=== PATIENT | female | born 1995 | race Caucasian/White ===

== ENCOUNTER 2021-04-25 02:59 | Emergency (ER) | payer OTHER ==
[2021-04-25] MEDS ORDERED: Haloperidol Lactate 5 MG/ML VIAL ONE ×2 (03:25→06:56)
[2021-04-25 05:51] LABS: #Eosinphils 0.1 10x3/uL (0.0-0.5); #Monocytes 0.5 10x3/uL (0.0-1.1); #Neutrophils 8.9 10x3/uL (1.5-8.4); %Basophils 0.4 % (0.0-2.0); %Eosinophils 0.6 % (0.0-6.0); %Lymphocytes 12.5 % (18.0-47.0); %Monocytes 4.3 % (0.0-10.0); %Neutrophils 81.7 % (40.0-75.0); Hemoglobin 12.5 g/dL (12.0-15.5); Mean Corpuscular HGB CONC 32.8 g/dL (32.0-36.0); Mean Corpuscular Hemoglobin 30.9 pg (27.0-33.0); Mean Corpuscular Volume 94.3 fl (81.6-98.3); Mean Platelet Volume 11.2 fl (7.4-10.4); Platelet Count 185 10x3/uL (150-450); RBC Distribution Width 12.8 % (11.5-14.5); Red Blood Cell (RBC) Count 4.04 10x6/uL (3.90-5.03); White Blood Cell (WBC) Count 10.9 10x3/uL (3.5-10.5)
[2021-04-25 06:05] LABS: BHCG - Serum Negative (NEGATIVE); Pregs Control Background? CLEAR/WHITE (CLR/WHITE); Pregs Control Bar Appear? YES (CONTROL BAR)
[2021-04-25 06:11] LABS: ALT (SGPT) 18 U/L (8-55); AST (SGOT) 22 U/L (5-34); Albumin 4.1 g/dL (3.5-5.0); Alkaline Phosphatase 62 U/L (40-110); Anion Gap 15 mmol/L (10-20); BUN (Urea Nitrogen) 13 mg/dL (7.0-18.7); Bilirubin, Total 0.5 mg/dL (0.2-1.2); Calc. Creatinine Clearance 0 mL/min (70-130); Calcium 9.2 mg/dL (7.8-10.44); Carbon Dioxide 21 mmol/L (22-29); Chloride 108 mmol/L (98-107); Globulin 2.5 g/dL (2.4-3.5); Glucose 134 mg/dL (70-105); Lipase 19 U/L (8-78); Magnesium 1.5 mg/dL (1.6-2.6); Protein, Total 6.6 g/dL (6.0-8.3); Sodium 141 mmol/L (136-145)
[2021-04-25 06:14] LABS: Potassium 2.8 mmol/L (3.5-5.1)
[2021-04-25] MEDS ORDERED: Magnesium 2 GM/50 ML BAG (IN WATER) ONE (07:21)
[2021-04-25] MEDS ORDERED: Potassium Chloride 20 MEQ/100 ML PREMIX BAG ONE (08:16)
== END 2021-04-25 11:00 | disposition home or self-care (01) ==
LOC: CSHERS 02:59
DX: E87.6 Hypokalemia (principal); E83.42 Hypomagnesemia; R11.2 Nausea with vomiting, unspecified; L93.0 Discoid lupus erythematosus; K58.9 Irritable bowel syndrome, unspecified
CPT/HCPCS: 80053; 83605; 83690; 83735; 84703; 85025; 96365; 96366; 96367; 96372; 96375; J1630; J3475; J3480